=== PATIENT | female | born 2000 | race Two or more races ===

== ENCOUNTER 2023-10-23 15:03 | Outpatient (CLI) | payer OTHER | END 2023-10-23 15:06 | disposition home or self-care (01) | LOC: PRENATAL 15:03 | PROVIDERS: ATTEND Obstetrics & Gynecology Maternal & Fetal Medicine | DX: O35.3XX0 Maternal care for (suspected) damage to fetus from viral disease in mother, not applicable or unspecified (principal); O44.00 Complete placenta previa NOS or without hemorrhage, unspecified trimester; Z3A.20 20 weeks gestation of pregnancy ==

== ENCOUNTER 2024-01-05 15:30 | Outpatient (CLI) | payer OTHER ==
[2024-01-05 16:06] VITALS: BP 106/70
[2024-01-05 17:34] LABS: HEMATOCRIT 33.8 % (36.0-45.00); HEMOGLOBIN 11.7 g/dL (12.0-15.00); MEAN CELL VOLUME 86.2 fL (80.00-100.00); MEAN CORPUSCULAR HEMOGLOBIN 29.9 pg (27.00-32.0); MEAN CORPUSCULAR HGB CONC 34.7 g/dl (32.0-36.0); PLATELET COUNT 312 K/uL (150-450); RED BLOOD COUNT 3.91 M/uL (4.00-6.00); RED CELL DISTRIBUTION WIDTH 13.6 % (11.5-14.5)
[2024-01-05 17:35] LABS: URINE APPEARANCE Clear; URINE BILIRRUBIN Negative (NEGATIVE); URINE BLOOD Negative; URINE COLOR Dark Yellow; URINE GLUCOSE Negative (NEGATIVE); URINE KETONE Negative (NEGATIVE); URINE LEUKOCYTE Negative; URINE NITRATE Negative; URINE PROTEIN Negative (NEGATIVE); URINE UROBILINOGEN 0.2 E.U./dl
[2024-01-05 17:39] LABS: URINE BACTERIA 623.6 uL (0.0-1933); URINE EPITHELIAL CELLS 12.8 uL (0.0-38.8); URINE RBC 35.1 uL (0.0-20.8); URINE WBC 11.5 uL (0.0-23.2)
[2024-01-05 18:03] LABS: INR < 0.93; PARTIAL THROMBOPLASTIN TIME 27.5 SECONDS (22.0-34.0); PROTHROMBIN TIME 10.2 SECONDS (9.0-11.5)
[2024-01-05 18:07] LABS: BILIRUBIN TOTAL 0.22 mg/dL (0.3-1.2); CREATININE SERUM 0.5 mg/dL (0.55-1.02); GFR 154.28; GLOBULINA 3.4 G/DL (2.4-3.5); POTASSIUM 3.96 mEq/L (3.5-5.1); TOTAL PROTEIN 6.4 gm/dL (6.4-8.2)
[2024-01-05] MEDS ORDERED: PRENATAL 19 TA1 EAC2 PO (20:10)
[2024-01-05 20:30] VITALS: BP 122/77
[2024-01-05] MEDS ORDERED: SODIUM CHLORIDE 0.45 % 1,000 ML IV SCH (20:30)
[2024-01-05 23:22] VITALS: BP 96/60
[2024-01-06 03:03] VITALS: BP 96/62
[2024-01-06 06:20] VITALS: BP 116/73; O2SAT 99
[2024-01-06 12:00] VITALS: BP 117/73
[2024-01-06 15:30] VITALS: BP 134/80
[2024-01-06 19:32] VITALS: BP 130/70
== END 2024-01-06 19:35 | disposition home or self-care (01) ==
LOC: OBS/DEL 15:30
PROVIDERS: ATTEND Obstetrics & Gynecology
DX: O26.893 Other specified pregnancy related conditions, third trimester (principal); O26.849 Uterine size-date discrepancy, unspecified trimester; O36.8199 Decreased fetal movements, unspecified trimester, other fetus; O13.9 Gestational [pregnancy-induced] hypertension without significant proteinuria, unspecified trimester; Z3A.32 32 weeks gestation of pregnancy

== ENCOUNTER 2024-02-29 12:35 | Inpatient (IN) | payer OTHER ==
[~2024-02-29] VITALS: Ht 152.4 cm; Wt 96.6 kg
[2024-02-29 00:02] VITALS: BP 128/74
[2024-02-29 11:18] VITALS: BP 128/74
[~2024-02-29 12:35] MED LIST: PRENATAL 19 TA1 EAC2 PO
[2024-02-29] MEDS ORDERED: RINGERS SOLUTION,LACTATED 1,000 ML IV SCH (13:15)
[2024-02-29] MEDS ORDERED: AMPICILLIN SODIUM 2,000 MG VIAL IV ONE (13:15)
[2024-02-29 13:36] LABS: PH,URINE 5.5 (5.0-8.0); URINE APPEARANCE Cloudy; URINE BILIRRUBIN Negative (NEGATIVE); URINE BLOOD Large; URINE COLOR Dark Yellow; URINE GLUCOSE Negative (NEGATIVE); URINE KETONE Trace (NEGATIVE); URINE LEUKOCYTE Small; URINE NITRATE Negative; URINE PROTEIN Trace (NEGATIVE)
[2024-02-29 13:39] LABS: HEMATOCRIT 37.9 % (36.0-45.00); HEMOGLOBIN 12.6 g/dL (12.0-15.00); MEAN CELL VOLUME 85.8 fL (80.00-100.00); MEAN CORPUSCULAR HEMOGLOBIN 28.5 pg (27.00-32.0); MEAN CORPUSCULAR HGB CONC 33.2 g/dl (32.0-36.0); PLATELET COUNT 231 K/uL (150-450); RED BLOOD COUNT 4.41 M/uL (4.00-6.00); RED CELL DISTRIBUTION WIDTH 14.9 % (11.5-14.5); URINE EPITHELIAL CELLS 109.2 uL (0.0-38.8); URINE RBC 12.3 uL (0.0-20.8); URINE WBC 40.2 uL (0.0-23.2)
[2024-02-29 13:55] LABS: URINE CAST 0.14 uL (0.0-1.40)
[2024-02-29 13:56] LABS: URINE CRYSTALS FEW /HPF; URINE YEAST FEW /hpf
[2024-02-29 14:03] LABS: INR 0.94; PARTIAL THROMBOPLASTIN TIME 30.9 SECONDS (22.0-34.0); PROTHROMBIN TIME 10.3 SECONDS (9.0-11.5)
[2024-02-29 14:41] LABS: ALBUMIN 2.7 gm/dL (3.4-5.0); BILIRUBIN TOTAL 0.35 mg/dL (0.3-1.2); CALCIUM 8.6 mg/dL (8.5-10.1); CREATININE SERUM 0.54 mg/dL (0.55-1.02); GFR 141.17; GLOBULINA 3.6 G/DL (2.4-3.5); POTASSIUM 4.34 mEq/L (3.5-5.1); TOTAL PROTEIN 6.3 gm/dL (6.4-8.2)
[2024-02-29 15:27] VITALS: BP 135/75
[2024-02-29] MEDS ORDERED: AMPICILLIN SODIUM 1,000 MG VIAL IV SCH ×2 (16:00→17:00)
[2024-02-29 19:44] VITALS: BP 121/70
[2024-02-29 23:31] VITALS: BP 120/77
[2024-03-01] VITALS (7 sets, daily range): BP systolic 113–139; BP diastolic 71–84
[2024-03-01] MEDS ORDERED: MORPHINE SULFATE 4 MG/ML CARTRIDGE IV ONE (01:15)
[2024-03-01] MEDS ORDERED: PROMETHAZINE HCL 25 MG/ML AMPUL ONE (21:00)
[2024-03-01] MEDS ORDERED: OXYTOCIN 10 UNITS/ML VIAL ONE (21:37)
[2024-03-01] MEDS ORDERED: ERYTHROMYCIN BASE OPHT 1GM EACH TUBE OP ONE (21:37)
[2024-03-01] MEDS ORDERED: KETOROLAC TROMETHAMINE 60 MG VIAL IM STA (22:59)
[2024-03-01] MEDS ORDERED: OXYTOCIN 1,000 ML IV SCH (23:00)
[2024-03-01] MEDS ORDERED: RINGERS SOLUTION,LACTATED 1,000 ML IV SCH (23:00)
[2024-03-01] MEDS ORDERED: CHLORHEXIDINE GLUCONATE 120 ML BOTTLE TOP ONE (23:00)
[2024-03-01] MEDS ORDERED: MEPERIDINE HCL/PF 50 MG/ML VIAL IM PRN (23:00)
[2024-03-01] MEDS ORDERED: PROMETHAZINE HCL 25 MG/ML AMPUL IM PRN (23:00)
[2024-03-02] MEDS ORDERED: AMPICILLIN SODIUM 1,000 MG VIAL ONE (00:36)
[2024-03-02] MEDS ORDERED: OXYTOCIN 10 UNITS/ML VIAL ONE (00:50)
[2024-03-02 03:37] LABS: HEMATOCRIT 32.1 % (36.0-45.00); HEMOGLOBIN 10.9 g/dL (12.0-15.00); MEAN CELL VOLUME 84.5 fL (80.00-100.00); MEAN CORPUSCULAR HEMOGLOBIN 28.6 pg (27.00-32.0); MEAN CORPUSCULAR HGB CONC 33.9 g/dl (32.0-36.0); PLATELET COUNT 212 K/uL (150-450)
[2024-03-02 03:44] VITALS: BP 116/73
[2024-03-02] MEDS ORDERED: OxyCODONE HCL/APAP UD (PERCOCET) PO PRN (09:00)
[2024-03-02 09:05] VITALS: BP 110/70
[2024-03-02 09:08] VITALS: BP 110/70
[2024-03-02 20:31] VITALS: BP 118/74
[2024-03-03] VITALS: BP 116/72
[2024-03-03 08:00] VITALS: BP 126/61
[2024-03-03 12:00] VITALS: BP 127/77
[2024-03-03 16:00] VITALS: BP 117/73
[2024-03-03 20:00] VITALS: BP 122/82
[2024-03-04 00:30] VITALS: BP 109/65
[2024-03-04 08:00] VITALS: BP 130/64
[2024-03-04] MEDS ORDERED: IBUprofen 400 MG TABLET PO ONE (12:00)
== END 2024-03-04 19:35 | disposition home or self-care (01) | DRG 788 ==
LOC: OBS/DEL 12:35 → LDR 03-01 08:17 → O/R 03-01 23:10 → OB/GYN 03-01 23:58
PROVIDERS: Obstetrics & Gynecology; ADMIT Obstetrics & Gynecology; ATTEND Obstetrics & Gynecology
PROC: 4A1HXCZ Monitoring of Products of Conception, Cardiac Rate, External Approach (ICD-10-PCS; 2024-03-01)
PROC: 10D00Z1 Extraction of Products of Conception, Low, Open Approach (ICD-10-PCS; principal; 2024-03-01 23:45)
DX: O82 Encounter for cesarean delivery without indication (principal); O62.0 Primary inadequate contractions; O64.0XX0 Obstructed labor due to incomplete rotation of fetal head, not applicable or unspecified; O69.81X0 Labor and delivery complicated by cord around neck, without compression, not applicable or unspecified; O99.824 Streptococcus B carrier state complicating childbirth; Z3A.39 39 weeks gestation of pregnancy; Z37.0 Single live birth